=== PATIENT | male | born 1935 | race Caucasian/White ===

== ENCOUNTER 2017-12-27 15:48 | Outpatient (CLI) | payer MEDICARE ==
[~2017-12-27 15:48] MED LIST: ISOVUE-370 76%-LOCM 1 ML ONE
--- NOTE | 2017-12-27 19:10 | CT ---
CT ANGIOGRAM ABDOMEN CT ANGIOGRAM PELVIS CT ANGIOGRAM RUNOFF TO THE FEET 12/27/17 HISTORY: Peripheral vascular disease. Abnormal doppler ultrasound: COMPARISON: None. TECHNIQUE: CT angiogram of the abdomen and pelvis with runoff to the feet was performed after the intravenous ad ministration of contrast. 3D rendering provided. There is scarring and bronchiectasis of the lower lobes as well as some emphysema. No pericardial eff usion. The gallbladder is unremarkable as well as the liver. Spleen is unremarkable. Adrenal glands are unre markable. Pancreas is unremarkable. No abnormal renal mass. No dilated loops of large or small bowel. No free intraperitoneal gas or flui d. The appendix is visualized and appears relatively normal. The paraspinal musculature is symmetric. Moderate facet arthropathy lower lumbar spine. No compressio n fracture. VESSELS: There is extensive atherosclerotic plaque of the aorta. No aneurysmal dilatation of the aorta. There is narrowing of the superior mesenteric artery ostia approximately 75% of the calcific plaques for le ngth of 1 cm. Celiac trunk ostia is patent. The splenic artery is patent. The hepatic artery is paten t. Inferior mesenteric artery is patent. There is complete occlusion of the right common iliac artery or igin off the aortic bifurcation extending into the external iliac artery with reconstitution of the c ommon femoral artery. There is occlusion of the right internal iliac artery for a length of 3 cm. There is extensive plaque of the common femoral artery. Extensive plaque of the femoral artery and de ep femoral artery. Popliteal artery is patent. Trifurcation has extensive atherosclerotic plaque with minimal flow. The right common femoral artery is prominent fed by the inferior epigastric and circumflex iliac cedric xiomy. LEFT SIDE: The common femoral artery has extensive atherosclerotic plaque. Near complete occlusion of the proxim al common iliac artery due to calcific plaque, greater than 90% stenosis for a length of 1 cm. Slow f low within the remainder of the iliac. The external iliac artery is occluded after the bifurcation of the internal iliac artery for 1 cm. There is flow within the common femoral artery due to reconstitu tion from the inferior epigastric and circumflex iliac arteries. Complete occlusion of the left femoral artery for a length of 10 cm with flow within the deep femoral artery. There is reconstitution of the popliteal artery from deep femoral artery collaterals. There is flow in the trifurcation. IMPRESSION: 1. Extensive atherosclerotic disease with complete occlusion of the right common iliac artery, l eft femoral artery, left external iliac artery, right internal iliac artery with distal reconstitutio n. 2. No aneurysmal dilatation of the aorta. 3. Slow flow to the feet through the trifurcation bilaterally. POS: RADHA
== END 2017-12-27 15:49 | disposition home or self-care (01) ==
LOC: CT 15:48
PROVIDERS: ATTEND Thoracic Surgery (Cardiothoracic Vascular Surgery)
DX: I70.213 Atherosclerosis of native arteries of extremities with intermittent claudication, bilateral legs (principal); I74.5 Embolism and thrombosis of iliac artery; I70.212 Atherosclerosis of native arteries of extremities with intermittent claudication, left leg
CPT/HCPCS: 75635; 82565

== ENCOUNTER 2018-01-25 14:28 | Outpatient (CLI) | payer MEDICARE ==
[2018-01-25 15:17] LABS: #Eosinphils 0.3 thou/uL (0.0-0.7); #Lymphocytes 2.1 thou/uL (1.20-3.40); #Monocytes 0.7 thou/uL (0.11-0.59); #Neutrophils 2.8 thou/uL (1.40-6.50); %Basophils 0.8 % (0.0-1.0); %Eosinophils 4.6 % (0.0-10.0); %Lymphocytes 36.1 % (21.0-51.0); %Monocytes 11.2 % (0.0-10.0); %Neutrophils 47.3 % (42.0-75.0); Hemoglobin 12.8 g/dL (14.0-18.0); Mean Corpuscular Hemoglobin 31.7 pg (27.0-31.0); Mean Corpuscular Volume 93.3 fL (78.0-98.0); Mean Platelet Volume 7.3 fL (7.4-10.4); Platelet Count 194 thou/uL (130-400); RBC Distribution Width 11.9 % (11.5-14.5); Red Blood Cell (RBC) Count 4.04 mill/uL (4.70-6.10); White Blood Cell (WBC) Count 5.9 thou/uL (4.8-10.8)
[2018-01-25 15:24] LABS: Prothrombin Time 12.9 SEC (12.0-14.7)
[2018-01-25 15:25] LABS: PTT 24.6 SEC (22.9-36.1)
[2018-01-25 15:38] LABS: ALT (SGPT) 17 U/L (8-55); AST (SGOT) 18 U/L (5-34); Albumin 4.4 g/dL (3.4-4.8); Alkaline Phosphatase 72 U/L (40-150); Anion Gap 9 mmol/L (10-20); BUN (Urea Nitrogen) 12 mg/dL (8.4-25.7); Bilirubin, Total 0.5 mg/dL (0.2-1.2); Calc. Creatinine Clearance 0 mL/min (70-130); Calcium 9.5 mg/dL (7.8-10.44); Carbon Dioxide 29 mmol/L (23-31); Chloride 104 mmol/L (98-107); Estimated GFR-MDRD 72; Globulin 2.6 g/dL (2.4-3.5); Glucose 100 mg/dL (83-110); Potassium 4.3 mmol/L (3.5-5.1); Sodium 138 mmol/L (136-145)
== END 2018-01-25 14:29 | disposition home or self-care (01) ==
LOC: LABBT 14:28
PROVIDERS: ATTEND Internal Medicine Cardiovascular Disease
DX: Z01.812 Encounter for preprocedural laboratory examination (principal); R94.39 Abnormal result of other cardiovascular function study
CPT/HCPCS: 80053; 85025; 85610; 85730

== ENCOUNTER 2018-01-29 06:00 | Day surgery (SDC) | payer MEDICARE ==
[2018-01-25 15:01] VITALS: BMI 25.9
[2018-01-29] MEDS ORDERED: Lidocaine 1% (PF) 30 ML VIAL ONE (06:51)
[2018-01-29] MEDS ORDERED: Heparin 10,000 UNITS/1 ML VIAL ONE (06:53)
[2018-01-29] MEDS ORDERED: Verapamil 5 MG/2 ML VIAL ONE (06:53)
[2018-01-29] MEDS ORDERED: Nitroglycerin 100MG/250ML BOT 250 ML ONE (06:53)
[2018-01-29 07:31] LABS: Cardiac Risk 3.6 (Less than 4.5)
[2018-01-29] MEDS ORDERED: Iopamidol 370 76% 100 ML VIAL ONE (08:18)
[2018-01-29] MEDS ORDERED: Iopamidol 370 76% 50 ML VIAL FS ONE (08:18)
[2018-01-29] MEDS ORDERED: Midazolam HCl 2 mg/2 ml Vial ONE (08:51)
[2018-01-29] MEDS ORDERED: CEFAZOLIN 1 GM VIAL ONE (09:41)
--- NOTE | 2018-02-04 14:26 | EKG ---
Test Reason : POST STENT Blood Pressure : / mmHG Vent. Rate : 063 BPM Atrial Rate : 063 BPM P-R Int : 232 ms QRS Dur : 072 ms QT Int : 410 ms P-R-T Axes : 081 036 059 degrees QTc Int : 419 ms Sinus rhythm with 1st degree A-V block Otherwise normal ECG No previous ECGs available Confirmed by KATTY PACKRE ([id number]) on 02/04/2018 2:25:37 PM Referred By: JESSICA Confirmed By:KATTY PACKER
== END 2018-01-29 16:11 | disposition home or self-care (01) ==
LOC: CCL 06:00
PROVIDERS: ATTEND Internal Medicine Cardiovascular Disease
PROC: 027034Z Dilation of Coronary Artery, One Artery with Drug-eluting Intraluminal Device, Percutaneous Approach (ICD-10-PCS; principal; 2018-01-29)
PROC: 4A023N7 Measurement of Cardiac Sampling and Pressure, Left Heart, Percutaneous Approach (ICD-10-PCS; 2018-01-29)
PROC: B2111ZZ Fluoroscopy of Multiple Coronary Arteries using Low Osmolar Contrast (ICD-10-PCS; 2018-01-29)
DX: I25.10 Atherosclerotic heart disease of native coronary artery without angina pectoris (principal); E78.00 Pure hypercholesterolemia, unspecified; I10 Essential (primary) hypertension; I73.9 Peripheral vascular disease, unspecified; E78.2 Mixed hyperlipidemia; I65.23 Occlusion and stenosis of bilateral carotid arteries; Z79.02 Long term (current) use of antithrombotics/antiplatelets; Z79.82 Long term (current) use of aspirin; Z79.899 Other long term (current) drug therapy
CPT/HCPCS: 80061; 85347; 93005; 93458; C1769 ×2; C1874; C1887; C9600; 92928; 99152; 99153; J0690; J1644; J2001; J2250